=== PATIENT | male | born 1985 | race Two or more races ===

== ENCOUNTER 2023-08-20 16:40 | Emergency (ER) | payer MEDICAID ==
[~2023-08-20] VITALS: Ht 182.9 cm; Wt 91.0 kg
[2023-08-20 17:29] VITALS: O2SAT 99
[2023-08-20] MEDS ORDERED: BO1 TP (19:06)
[2023-08-20] MEDS ORDERED: CYCL5TAB MT (19:06)
[2023-08-20] MEDS ORDERED: IBUP-2437 MT (19:08)
[2023-08-20] MEDS ORDERED: TOPUD MT (19:08)
[2023-08-20] MEDS ORDERED: IBUPROFEN 800MG TABLET PO ONE (19:15)
[2023-08-20] MEDS ORDERED: IBUPROFEN 400MG TABLET PO NR (19:15)
[2023-08-20 20:15] VITALS: BP 114/66
[2023-08-20 20:17] VITALS: PULSE 75; RESP 18; TEMP 98.7
== END 2023-08-20 20:21 | disposition home or self-care (01) ==
LOC: ER 16:40
DX: S80.212A Abrasion, left knee, initial encounter (principal); S80.211A Abrasion, right knee, initial encounter; G89.29 Other chronic pain; M54.9 Dorsalgia, unspecified; Z90.49 Acquired absence of other specified parts of digestive tract; Z98.890 Other specified postprocedural states; Y08.89XA Assault by other specified means, initial encounter; Y93.89 Activity, other specified; Y92.89 Other specified places as the place of occurrence of the external cause; Y99.8 Other external cause status
CPT/HCPCS: 73562; 99283